=== PATIENT | male | born 1960 | race Caucasian/White ===

== ENCOUNTER 2024-02-04 09:45 | Outpatient (CLI) | payer MEDICARE, BC ==
--- NOTE | 2024-02-04 11:50 | Ultrasound Report ---
PROCEDURE: Aorta Screening INDICATIONS: screening for AAA TECHNIQUE: Real time scanning was performed of the aorta and iliac arteries, with image documentatio n. COMPARISON: None. FINDINGS: Aorta: Proximal aortic diameter measures 2.8 cm. Mid-aorta measures 2.1 cm. Distal aortic diameter is 2.0 cm. Iliac arteries: Right common iliac artery measures 1.2 cm. Left common iliac artery measures 1.3 cm . IMPRESSION: Ectatic proximal aorta. Recommend 5 year follow-up per consensus guidelines. Reviewed by: Abran Valentine MD on 02/04/2024 11:49 AM PDT Approved by: Abran Valentine MD on 02/04/2024 11:49 AM PDT Station ID: [id number]
== END 2024-02-04 09:46 | disposition home or self-care (01) ==
LOC: DI 09:45
PROVIDERS: ATTEND Family Medicine
DX: Z13.6 Encounter for screening for cardiovascular disorders (principal); I77.811 Abdominal aortic ectasia